=== PATIENT | female | born 1965 | race Caucasian/White ===

== ENCOUNTER → 2017-06-29 | Outpatient (CLI) | payer OTHER ==
--- NOTE | 2017-06-29 10:37 | US ---
EXAMINATION TYPE: US venous doppler duplex LE BI DATE OF EXAM: 06/29/2017 9:42 AM COMPARISON: 04/04/2014 CLINICAL HISTORY: 52-year-old female I83.90 Ruptured varicose vein. SIDE PERFORMED: Bilateral TECHNIQUE: The lower extremity deep venous system is examined utilizing real time linear array sonog opal with graded compression, doppler sonography and color-flow sonography. FINDINGS: TREE DOCTOR NOTES: Large body habitus. VESSELS IMAGED: External Iliac Vein (EIV) Common Femoral Vein Deep Femoral Vein Greater Saphenous Vein * Femoral Vein Popliteal Vein Small Saphenous Vein * Proximal Calf Veins (* superficial vessels) Right Leg: Negative for DVT Left Leg: Negative for DVT IMPRESSION: No evidence for DVT within the bilateral lower extremities imaged from the groin to the upper calves.
== END | disposition home or self-care (01) ==
LOC: RADUSWWP 08:50
PROVIDERS: ATTEND Family Medicine
DX: I83.90 Asymptomatic varicose veins of unspecified lower extremity (principal)
CPT/HCPCS: 93970

== ENCOUNTER → 2017-07-12 | Outpatient (CLI) | payer OTHER ==
--- NOTE | 2017-07-14 10:01 | MM ---
Reason for exam: screening (asymptomatic). Last mammogram was performed 2 years and 4 months ago. History: Patient is nulliparous. Family history of breast cancer in maternal grandmother. Physical Findings: A clinical breast exam by your physician is recommended on an annual basis and results should be correlated with mammographic findings. MG Screening Mammo w CAD Bilateral CC and MLO view(s) were taken. XCCL view(s) were taken of the left breast. Prior study comparison: March 05, 2015, bilateral MG screening mammo w CAD. March 12, 2014, bilateral digital screening mammo w/CAD. April 19, 2012, bilateral digital screening mammo w/CAD. There are scattered fibroglandular densities. Finding: There are typically benign coarse calcifications in the upper quadrant, posterior position of the right breast, on MLO view 14cm from nipple, possible lymph node. Asymmetric breast tissue, right MLO view 14 cm from nipple. New finding since March 05, 2015, March 12, 2014, and April 19, 2012. ASSESSMENT: Incomplete: need additional imaging evaluation, BI-RAD 0 RECOMMENDATION: Ultrasound of the right breast. [facility] will attempt to contact patient to return for ultrasound.
== END | disposition home or self-care (01) ==
LOC: RADMAMWWP 10:11
PROVIDERS: ATTEND Family Medicine
DX: Z12.31 Encounter for screening mammogram for malignant neoplasm of breast (principal)

== ENCOUNTER → 2017-07-19 | Outpatient (CLI) | payer OTHER ==
--- NOTE | 2017-07-20 07:33 | USB ---
Reason for exam: additional evaluation requested from prior study. History: Patient is nulliparous. Family history of breast cancer in maternal grandmother. Physical Findings: Nurse did not find any significant physical abnormalities on exam (nurse sophia). US Breast Workup RT Right breast ultrasound demonstrates a 0.6 x 0.6 x 0.6cm node at axilla tail. These results were verbally communicated with the patient and result sheet given to the patient on 07/19/17. ASSESSMENT: Probably benign, BI-RAD 3 RECOMMENDATION: Ultrasound of the right breast in 6 months.
--- NOTE | 2017-07-22 10:48 | USB ---
Reason for exam: additional evaluation requested from prior study. History: Patient is nulliparous. Family history of breast cancer in maternal grandmother. Physical Findings: Nurse did not find any significant physical abnormalities on exam (nurse sophia). US Breast Workup Limited RT Right breast ultrasound demonstrates a 0.6 x 0.6 x 0.6cm node at axilla tail. These results were verbally communicated with the patient and result sheet given to the patient on 07/19/17. ASSESSMENT: Probably benign, BI-RAD 3 RECOMMENDATION: Ultrasound of the right breast in 6 months.
== END ==
LOC: RADUSWWP 10:13
PROVIDERS: ATTEND Family Medicine
DX: R92.8 Other abnormal and inconclusive findings on diagnostic imaging of breast (principal)

== ENCOUNTER → 2018-01-20 | Outpatient (CLI) | payer BC ==
--- NOTE | 2018-01-20 11:41 | USB ---
Reason for exam: follow-up at short interval from prior study. History: Patient is nulliparous. Family history of breast cancer in maternal grandmother. Physical Findings: Nurse Summary: right breast upper outer quadrant/1 o'clock/axillary tail, 2 x 1cm movable, bilateral ridge inferior breast all soft, movable, subcutaneous area superior chest right 1 o'clock (nurse ts). US Breast RT Right breast ultrasound includes all four quadrants, the retroareolar region and axilla. Finding demonstrates a 0.6 x 0.4 x 0.3cm oval solid lesion at 2 o'clock and a 2.0 x 1.6 x 0.8cm lymph node at the axilla. These results were verbally communicated with the patient and result sheet given to the patient on 01/20/18. ASSESSMENT: Probably benign, BI-RAD 3 RECOMMENDATION: Return to routine screening mammogram schedule for both breasts. Back on schedule for June 2018. Manage patient on a clinical basis.
== END | disposition home or self-care (01) ==
LOC: RADUSWWP 10:19
PROVIDERS: ATTEND Family Medicine
DX: R92.8 Other abnormal and inconclusive findings on diagnostic imaging of breast (principal)

== ENCOUNTER → 2018-08-30 | Outpatient (CLI) | payer BC ==
[2018-08-30 11:31] LABS: Basophils # (A) 0.1 k/uL (0-0.2); Basophils % (A) 1 %; Eosinophils # (A) 0.1 k/uL (0-0.7); Eosinophils % (A) 1 %; HCT 42.3 % (34.0-46.0); HGB 13.6 gm/dL (11.4-16.0); Lymphocytes # (A) 1.9 k/uL (1.0-4.8); Lymphocytes % (A) 34 %; MCHC 32.1 g/dL (31.0-37.0); MCV 96.8 fL (80.0-100.0); Mean Platelet Volume 6.9; Monocytes # (A) 0.3 k/uL (0-1.0); Monocytes % (A) 5 %; Neutrophils # (A) 3.1 k/uL (1.3-7.7); Neutrophils % (A) 57 %; Platelet Count 246 k/uL (150-450); RBC 4.37 m/uL (3.80-5.40); RDW 12.7 % (11.5-15.5); WBC 5.5 k/uL (3.8-10.6)
[2018-08-30 12:06] LABS: T4, Free (Free Thyroxine) 0.91 ng/dL (0.78-2.19)
[2018-08-30 17:49] LABS: Hemoglobin A1C 6.3 % (4.0-6.0)
== END | disposition home or self-care (01) ==
LOC: LABWHC1 09:26
PROVIDERS: ATTEND Otolaryngology Otolaryngology/Facial Plastic Surgery
DX: R42 Dizziness and giddiness (principal)
CPT/HCPCS: 36415; 80061; 83036; 84436; 84439; 84443; 84479; 84481; 85025

== ENCOUNTER → 2018-09-05 | Outpatient (CLI) | payer BC ==
--- NOTE | 2018-09-06 13:15 | MM ---
Reason for exam: screening (asymptomatic). Last mammogram was performed 1 year and 2 months ago. History: Patient is postmenopausal and is nulliparous. Family history of breast cancer in maternal grandmother. Took hormonal contraceptives for 14 years. MG 3D Screening Mammo W/Cad Bilateral CC and MLO view(s) were taken. Prior study comparison: July 12, 2017, bilateral MG screening mammo w CAD. March 05, 2015, bilateral MG screening mammo w CAD. There are scattered fibroglandular densities. Finding #1: There is an enlarging 14 mm round mass in the upper outer quadrant, posterior position of the right breast. Finding #2: There are typically benign round calcifications in both breasts. Increase in size since July 12, 2017 and March 05, 2015. ASSESSMENT: Incomplete: need additional imaging evaluation, BI-RAD 0 RECOMMENDATION: Ultrasound of the right breast. (axilla) [facility] will attempt to contact patient to return for ultrasound.
== END | disposition home or self-care (01) ==
LOC: RADMAMWWP 10:21
PROVIDERS: ATTEND Family Medicine
DX: Z12.31 Encounter for screening mammogram for malignant neoplasm of breast (principal)
CPT/HCPCS: 77063; 77067

== ENCOUNTER → 2018-09-13 | Outpatient (CLI) | payer BC ==
--- NOTE | 2018-09-13 10:52 | USB ---
Reason for exam: additional evaluation requested from abnormal screening. History: Patient is postmenopausal and is nulliparous. Family history of breast cancer in maternal grandmother. Took hormonal contraceptives for 14 years. Physical Findings: Nurse did not find any significant physical abnormalities on exam. US Breast Workup Limited RT Right limited breast ultrasound including focal area of concern, retroareolar and axilla demonstrates a 1.4 x 1.3 x 0.8cm oval, mixed lesion at 12 o'clock. These results were verbally communicated with the patient and result sheet given to the patient on 09/13/18. ASSESSMENT: Benign, BI-RAD 2 RECOMMENDATION: Return to routine screening mammogram schedule for both breasts. Manage patient on a clinical basis.
== END | disposition home or self-care (01) ==
LOC: RADUSWWP 09:32
PROVIDERS: ATTEND Family Medicine
DX: R92.8 Other abnormal and inconclusive findings on diagnostic imaging of breast (principal)

== ENCOUNTER → 2018-11-03 | Outpatient (CLI) | payer BC ==
[2018-11-03 09:51] VITALS: BP 160/105; PULSE 60; RESP 18; TEMP 97.4; BMI 38.9
--- NOTE | 2018-11-03 10:23 | P.GSHP ---
History of Present Illness H&P Date: 11/03/18 Chief Complaint: nodule in the right breast Oxana is a 53-year-old white female who states that she had a mammogram performed on [id number]. The mammogram did show an enlarging 14 mm round mass in the upper-outer quadrant position of the right breast. It was recommended she have an ultrasound of the right breast and axilla and this was performed on 2417. The findings of this were felt to be benign and routine screening the breast was recommended in 1 year. However, following the ultrasound the patient developed an area of increased induration and fullness in the 12 o' clock position of the right breast. She has had a superficial lesion at this site for approximately 3 years. Has never become inflamed in the past. At this time the inflammation has decreased however the area of palpable abnormality remains. The patient is not having any pain at this time. The patient is not having any abnormal nipple discharge at this time. Family History: 1. maternal grandmother: breast cancer 2. paternal uncle: throat cancer Hormonal history: Menarche: 6 years old Pregnancies: None (intentional) menopause: 49 BCP: 20 years hormones: none Past Surgical History: 1. arthroscopic knee 2. bilateral carpal tunnel and trigger release 3. bowel resection/right colon and appendix removed 4. hernia 5. Bilateral blepharoplasty Past Medical History: 1. arthritis 2. right arm trauma/crush injury Social History: smoke: stopped 16 years ago, 2 1/2 PPD, for 20 years alcohol: stopped 18 years ago drugs: Used to use marijuana and opioids but stopped 18 years ago - Constitutional Constitutional: Denies chills, Denies fever - EENT Comment: wears glasses, bilateral blephroplasties vertigo Eyes: bilateral blurred vision (following with opthmology), denies pain Ears: bilateral: decreased hearing, deny: tinnitus Ears, nose, mouth and throat: Denies headache, Denies sore throat - Breasts Breasts: bilateral: as per HPI - Cardiovascular Cardiovascular: Reports high blood pressure, Denies chest pain, Denies shortness of breath - Respiratory Comment: former smoker - Gastrointestinal Comment: has had colonoscopy about 4 years ago Gastrointestinal: Reports constipation, Denies abdominal pain, Denies diarrhea, Denies nausea, Denies vomiting - Genitourinary (Female) Genitourinary: Denies dysuria, Denies hematuria - Menstruation Menstruation: Reports postmenopausal - Musculoskeletal Comment: arthritis, trauma to right arm - Integumentary Integumentary: Denies pruritus, Denies rash - Neurological Neurological: Reports numbness, Reports weakness - Psychiatric Psychiatric: Denies anxiety, Denies depression - Endocrine Comment: boarderline diabetic Endocrine: Denies fatigue, Denies weight change - Hematologic/Lymphatic Comment: none - Allergic/Immunologic Allergic/Immunologic: Reports seasonal allergies Past Medical History Past Medical History: Asthma, Hypertension, Osteoarthritis (OA), Sleep Apnea/ CPAP/BIPAP Additional Past Medical History / Comment(s): diverticulitis in April, now having right sided abd. pain & can feel hard, painful lump on right side, slight change in bowel habits History of Any Multi-Drug Resistant Organisms: None Reported Past Surgical History: Appendectomy, Bowel Resection, Orthopedic Surgery Additional Past Surgical History / Comment(s): Bilateral carpal tunnel release. Finger surg., laparscopic bowel resection & appy. April Past Anesthesia/Blood Transfusion Reactions: Postoperative Nausea & Vomiting ( PONV) Past Psychological History: No Psychological Hx Reported Smoking Status: Former smoker Past Alcohol Use History: Occasional Past Drug Use History: None Reported - Past Family History Father Additional Family Medical History / Comment(s): Father with ULCERATIVE COLITIS WITH ILEOSTOMY Medications and Allergies Home Medications Medication Instructions Recorded Confirmed Type Lisinopril 40 mg PO QAM 04/15/14 11/03/18 History Multivitamins, Thera [Multivitamin 1 tab PO DAILY 04/17/14 11/03/18 History (formulary)] Docusate [Colace] 100 mg PO DAILY 10/28/14 11/03/18 History Preservision 1 tab PO DAILY 10/28/14 11/03/18 History amLODIPine [Norvasc] 5 mg PO QAM 10/28/14 11/03/18 History Ibuprofen [Motrin] 800 mg PO Q8HR PRN 11/18/14 11/03/18 History HYDROcodone/APAP 7.5-325MG [[place] 1 - 2 each PO Q4H PRN #3 300ml.bag 12/03/14 Rx 7.5-325] Beclomethasone Dipropionate [Qvar 40 mcg INHALATION BID 11/03/18 11/03/18 History 40 mcg Redihaler] Allergies Allergy/AdvReac Type Severity Reaction Status Date / Time No Known Allergies Allergy Verified 11/18/14 14:07 Surgical - Exam Vital Signs Temp Pulse Resp BP Pulse Ox 97.4 F L 60 18 160/105 98 11/03/18 09:30 11/03/18 09:30 11/03/18 09:30 11/03/18 09:30 11/03/18 09:30 BMI 38.9 - General well developed, well nourished, no distress, obese - Eyes normal ocular movement - ENT no hearing loss, no congestion - Neck no masses, trachea midline - Respiratory normal respiratory effort, clear to auscultation - Cardiovascular Rhythm: regular Heart Sounds: normal: S1, S2 - Abdomen Abdomen: soft, non tender, no guarding, no rigid, no rebound - Integumentary normal turgar - Neurologic no disoriented, no combative - Musculoskeletal normal gait, normal posture - Psychiatric oriented to time, oriented to person, oriented to place, speech is normal, memory intact Breast exam: Right breast: Multi-positional exam no dominant masses or nodules of concern, the 12 o'clock position high in the breast area is what appears to be a superficial sebaceous cyst which appears to have some mild inflammation surrounding it Right axilla: No adenopathy of concern Left breast: Multi-positional examination of dominant masses or nodules of concern Left axilla: No adenopathy of concern Results Mammogram and ultrasound results reviewed Assessment and Plan Assessment: Impression: 1. Probable sebaceous cyst right breast with some mild inflammation resolving 2. Fibrocystic breast changes 3. Hypertension 4. Asthma 5. Prior smoker 6. Arthritis 7. Borderline diabetic line 8. Status post bowel resection Plan: 1. Surgical resection of sebaceous cyst 2. Routine surveillance of breast 3. Medical management of medical conditions CC: Dr. Mccormick, ([place])
== END | disposition home or self-care (01) ==
LOC: WWCWWP 08:50
PROVIDERS: ATTEND Surgery
DX: Z53.9 Procedure and treatment not carried out, unspecified reason (principal)

== ENCOUNTER 2018-11-14 16:57 | Emergency (ER) | payer BC, OTHER ==
[2018-11-14] MEDS ORDERED: HYDROcodone/APAP 5-325MG 1 EACH TAB PO STA (17:37)
[2018-11-14] MEDS ORDERED: traMADol 50 MG TAB PO STA (17:47)
[2018-11-14 18:22] LABS: Basophils # (A) 0.1 k/uL (0-0.2); Basophils % (A) 1 %; Eosinophils # (A) 0.1 k/uL (0-0.7); Eosinophils % (A) 2 %; HCT 40.9 % (34.0-46.0); HGB 13.3 gm/dL (11.4-16.0); Lymphocytes # (A) 1.8 k/uL (1.0-4.8); Lymphocytes % (A) 28 %; MCH 30.8 pg (25.0-35.0); MCHC 32.6 g/dL (31.0-37.0); MCV 94.5 fL (80.0-100.0); Mean Platelet Volume 7.1; Monocytes # (A) 0.3 k/uL (0-1.0); Monocytes % (A) 5 %; Neutrophils % (A) 61 %; Platelet Count 312 k/uL (150-450); RBC 4.33 m/uL (3.80-5.40); RDW 12.9 % (11.5-15.5); WBC 6.5 k/uL (3.8-10.6)
[2018-11-14 18:31] LABS: ALT 28 U/L (9-52); AST 31 U/L (14-36); Albumin 4.5 g/dL (3.5-5.0); Alkaline Phosphatase 73 U/L (38-126); Anion Gap 10 mmol/L; Blood Urea Nitrogen 18 mg/dL (7-17); Calcium 10.4 mg/dL (8.4-10.2); Carbon Dioxide 21 mmol/L (22-30); Chloride 109 mmol/L (98-107); Glucose 111 mg/dL (74-99); Sodium 140 mmol/L (137-145); Total Bilirubin 0.3 mg/dL (0.2-1.3); Total Protein 7.4 g/dL (6.3-8.2)
[2018-11-14 18:37] LABS: Potassium 4.4 mmol/L (3.5-5.1)
--- NOTE | 2018-11-14 18:42 | US ---
EXAMINATION TYPE: US venous doppler duplex LE DATE OF EXAM: 11/14/2018 6:22 PM COMPARISON: NONE CLINICAL HISTORY: Pain. rt knee pain, no h/o dvt SIDE PERFORMED: bilateral TECHNIQUE: The lower extremity deep venous system is examined utilizing real time linear array sonog opal with graded compression, doppler sonography and color-flow sonography. VESSELS IMAGED: External Iliac Vein (EIV) Common Femoral Vein Deep Femoral Vein Greater Saphenous Vein * Femoral Vein Popliteal Vein Small Saphenous Vein * Proximal Calf Veins (* superficial vessels) Right Leg: Appears negative for DVT Left Leg: Appears negative for DVT IMPRESSION: Negative exam. No evidence of deep venous thrombosis in both legs.
--- NOTE | 2018-11-14 18:50 | XR ---
EXAMINATION TYPE: XR knee 4V RT DATE OF EXAM: 11/14/2018 COMPARISON: NONE HISTORY: Knee pain TECHNIQUE: 4 views FINDINGS: There is mild spurring on the superior patella. I see no fracture nor dislocation. Joint sp aces are fairly normal. IMPRESSION: No acute abnormality of the right knee. No fracture. No joint effusion.
[2018-11-14 19:11] VITALS: RESP 18
--- NOTE | 2018-11-14 19:24 | ED ---
General Adult HPI - General Chief complaint: Extremity Injury, Lower Stated complaint: Knee injury Source: patient, EMS, RN notes reviewed, old records reviewed Mode of arrival: EMS Limitations: no limitations - History of Present Illness Initial comments: 53-year-old female patient past medical history of chronic knee pain presents to ED with acute right knee injury. Patient states that she was walking and her mother's kitchen, slipped on linoleum, not herself with the counter however she states that she felt a pop in her right knee, began experiencing pain. Patient denies any other injury acute injury. Denies fall, head trauma, neck trauma, pain in back, loss of consciousness, any other injury. Patient denies other symptoms including chest pain, shortness breath, abdominal pain, nausea vomiting diarrhea, fever or chills. Systemic: Pt denies fatigue, myalgia, fever/chills, rash. Pt denies weakness, night sweats, weight loss. Neuro: Pt denies headache, visual disturbances, syncope or pre-syncope. HEENT: Pt denies ocular discharge or irritation, otalgia, rhinorrhea, pharyngitis or notable lymphadenopathy. Cardiopulmonary: Pt denies chest pain, SOB, heart palpitations, dyspnea on exertion. Abdominal/GI: Pt denies abdominal pain, n/v/d. : Pt denies dysuria, burning w/ urination, frequency/urgency. Denies new onset urinary or bowel incontinence. MSK: Pt denies myalgia, loss of strength in extremities. Neuro: Pt denies new onset weakness, paresthesias. - Related Data Home Medications Medication Instructions Recorded Confirmed Lisinopril 40 mg PO QAM 04/15/14 11/03/18 Multivitamins, Thera [Multivitamin 1 tab PO DAILY 04/17/14 11/03/18 (formulary)] Docusate [Colace] 100 mg PO DAILY 10/28/14 11/03/18 Preservision 1 tab PO DAILY 10/28/14 11/03/18 amLODIPine [Norvasc] 5 mg PO QAM 10/28/14 11/03/18 Ibuprofen [Motrin] 800 mg PO Q8HR PRN 11/18/14 11/03/18 Beclomethasone Dipropionate [Qvar 40 mcg INHALATION BID 11/03/18 11/03/18 40 mcg Redihaler] Previous Rx's Medication Instructions Recorded HYDROcodone/APAP 7.5-325MG [[place] 1 - 2 each PO Q4H PRN #3 300ml.bag 12/03/14 7.5-325] Ibuprofen [Motrin] 600 mg PO Q6HR PRN #40 day 11/14/18 Allergies Allergy/AdvReac Type Severity Reaction Status Date / Time No Known Allergies Allergy Verified 11/14/18 17:01 Review of Systems ROS Statement: Those systems with pertinent positive or pertinent negative responses have been documented in the HPI. ROS Other: All systems not noted in ROS Statement are negative. Past Medical History Past Medical History: Asthma, Hypertension, Osteoarthritis (OA), Sleep Apnea/ CPAP/BIPAP Additional Past Medical History / Comment(s): diverticulitis in April, now having right sided abd. pain & can feel hard, painful lump on right side, slight change in bowel habits History of Any Multi-Drug Resistant Organisms: None Reported Past Surgical History: Appendectomy, Bowel Resection, Orthopedic Surgery Additional Past Surgical History / Comment(s): Bilateral carpal tunnel release. Finger surg., laparscopic bowel resection & appy. April Past Anesthesia/Blood Transfusion Reactions: Postoperative Nausea & Vomiting ( PONV) Past Psychological History: No Psychological Hx Reported Smoking Status: Former smoker Past Alcohol Use History: Occasional Past Drug Use History: None Reported - Past Family History Father Additional Family Medical History / Comment(s): Father with ULCERATIVE COLITIS WITH ILEOSTOMY General Exam - General Exam Comments Initial Comments: Constitutional: NAD, AOX3, Pt has pleasant affect. HEENT: NC/AT, trachea midline, neck supple, no lymphadenopathy. Posterior pharynx non erythematous, without exudates. External ears appear normal, without discharge. Mucous membranes moist. Eyes PERRLA, EOM intact. There is no scleral icterus. No pallor noted. Cardiopulmonary: RRR, no murmurs, rubs or gallops, no JVD noted. Lungs CTAB in anterior and posterior barrera. No peripheral edema. Abdominal exam: Abdomen soft and non-distended. Abdomen non-tender to palpation in all 4 quadrants. Bowel sounds active in LLQ. No hepatosplenomegaly. No ecchymosis Neuro: CN II-XII grossly intact. No nuchal rigidity. MSK: Pain with active and passive range of motion of right knee. Patient is able to range right knee passively, with pain. Patient has some moderate pain to palpation anterior and posterior knee. No erythema. Neurovascularly intact. Sensation intact. Distal pulses intact, posterior tibialis, dorsalis pedis +2 bilaterally. Patient able to flex knee at hip. Left knee active and passive range of motion intact, no tenderness. No posterior calf tenderness bilaterally, homans sign negative bilaterally. radial pulse +2 bilaterally. Sensation intact in upper and lower extremities. Full active ROM in upper extremities, 5/5 stregnth. Limitations: no limitations Course Vital Signs 11/14/18 11/14/18 11/14/18 16:58 19:10 20:56 Temperature 98.8 F 98.4 F 98.8 F Pulse Rate 86 77 65 Respiratory 20 18 18 Rate Blood Pressure 177/97 154/75 165/100 O2 Sat by Pulse 98 98 98 Oximetry Medical Decision Making - Medical Decision Making 53-year-old female patient past medical history of chronic knee pain presents to ED with acute right knee injury. Patient states that she was walking and her mother's kitchen, slipped on linoleum, not herself with the counter however she states that she felt a pop in her right knee, behind experiencing pain. Patient denies any other injury acute injury. Physical exam displayed Pain with active and passive range of motion of right knee. Patient is able to range right knee passively, with pain. Patient has some moderate pain to palpation anterior and posterior knee. No erythema. Neurovascularly intact. Sensation intact. Distal pulses intact, posterior tibialis, dorsalis pedis. Patient able to flex knee at hip. Laboratory investigation CBC, CMP were not impressive. Plain film of right knee, 4 view did not display any acute process. Venous duplex ultrasound of lower extremities and display any evidence of deep venous thrombosis. Patient diagnosed with knee sprain. Patient placed in the immobilizer. Patient to be nonweightbearing. Patient given follow-up with orthopedics. Patient pain relatively well controlled in ED. Patient not driving home. Patient prescribed ibuprofen for pain. Patient to follow up with PCP and orthopedic as soon as possible. Agent to return to ED if new signs symptoms develop or condition worsens in any way. Case discussed and pt seen by Dr. Hutchison. - Lab Data Result diagrams: 11/14/18 17:58 11/14/18 17:58 Lab Results 12/25/18 12/25/18 12/25/18 Range/Units 17:58 17:58 17:58 WBC 6.5 (3.8-10.6) k/uL RBC 4.33 (3.80-5.40) m/uL Hgb 13.3 (11.4-16.0) gm/dL Hct 40.9 (34.0-46.0) % MCV 94.5 (80.0-100.0) fL MCH 30.8 (25.0-35.0) pg MCHC 32.6 (31.0-37.0) g/dL RDW 12.9 (11.5-15.5) % Plt Count 312 (150-450) k/uL Neutrophils % 61 % Lymphocytes % 28 % Monocytes % 5 % Eosinophils % 2 % Basophils % 1 % Neutrophils # 4.0 (1.3-7.7) k/uL Lymphocytes # 1.8 (1.0-4.8) k/uL Monocytes # 0.3 (0-1.0) k/uL Eosinophils # 0.1 (0-0.7) k/uL Basophils # 0.1 (0-0.2) k/uL Sodium 140 (137-145) mmol/L Potassium 4.4 (3.5-5.1) mmol/L Chloride 109 H (98-107) mmol/L Carbon Dioxide 21 L (22-30) mmol/L Anion Gap 10 mmol/L BUN 18 H (7-17) mg/dL Creatinine 0.74 (0.52-1.04) mg/dL Est GFR (CKD-EPI)AfAm >90 (>60 ml/min/1.73 sqM) Est GFR (CKD-EPI)NonAf >90 (>60 ml/min/1.73 sqM) Glucose 111 H (74-99) mg/dL Plasma Lactic Acid Theodore 1.9 (0.7-2.0) mmol/L Calcium 10.4 H (8.4-10.2) mg/dL Total Bilirubin 0.3 (0.2-1.3) mg/dL AST 31 (14-36) U/L ALT 28 (9-52) U/L Alkaline Phosphatase 73 (38-126) U/L Total Protein 7.4 (6.3-8.2) g/dL Albumin 4.5 (3.5-5.0) g/dL Disposition Clinical Impression: Knee pain, right, Sprain, knee Disposition: HOME SELF-CARE Condition: Good Instructions: Knee Sprain (ED) Additional Instructions: Patient to adhere to previously discussed treatment plan and will take medication(s) as directed. Patient to follow up with PCP in 1-2 days. Patient to return to ED if symptoms do not improve. Prescriptions: Ibuprofen [Motrin] 600 mg PO Q6HR PRN #40 day PRN Reason: Pain Is patient prescribed a controlled substance at d/c from ED?: No Referrals: Zeke Mccormick DO [Primary Care Provider] - 1-2 days Nakul Reardon PAC [PHYSICIAN MANAGER [facility]] - 1-2 days Time of Disposition: 19:35
[2018-11-14] MEDS ORDERED: KETOROLAC 30 MG/ML 1 ML VIAL IVP STA (19:55)
[2018-11-14] MEDS ORDERED: MORPHINE SULFATE 4 MG/ML SYRINGE IVP STA (20:07)
[2018-11-14 20:57] VITALS: BP 165/100; PULSE 65; TEMP 98.8
== END 2018-11-14 20:56 | disposition home or self-care (01) ==
LOC: EC 16:57
DX: S83.91XA Sprain of unspecified site of right knee, initial encounter (principal); J45.909 Unspecified asthma, uncomplicated; I10 Essential (primary) hypertension; G47.30 Sleep apnea, unspecified; Z79.51 Long term (current) use of inhaled steroids; Z79.899 Other long term (current) drug therapy; Z87.891 Personal history of nicotine dependence; X50.1XXA Overexertion from prolonged static or awkward postures, initial encounter; Y93.01 Activity, walking, marching and hiking
CPT/HCPCS: 36415; 80053; 83605; 85025; 73564; 93970; 99284; 96374; L1830 ×2; J2270

== ENCOUNTER → 2018-12-07 | Outpatient (CLI) | payer BC ==
[2018-12-07 08:51] VITALS: BP 141/86; PULSE 79; RESP 18; TEMP 98; BMI 39.4
--- NOTE | 2018-12-07 10:40 | P.PN ---
Subjective cyst right april Daigle is a 53-year-old white female who was seen with a area of nodularity in the right breast/chest wall. The area was felt to be a somewhat superficial lesion which has been present for approximately 3 years. It has recently become inflamed and has some mild drainage from the area as well at this time. The inflammation started several days ago. The patient did have a bilateral mammogram performed in August 2018 as well as an ultrasound of the right breast. These findings were felt to be benign and routine screening of the breast was recommended in 1 year. The patient was seen and evaluated at that time and a breast examination she was noted to have a 12 o'clock position in the right breast area was believed to be superficial sebaceous cyst with some inflammation surrounding it, at this time she has increased erythema and the inflammation with some drainage from the area. Family history: 1. Maternal grandmother: Breast cancer 2. Paternal uncle: Throat cancer Past surgical history: 1. Arthroscopic knee surgery 2. Bilateral carpal tunnel and trigger release 3. Bowel resection/right colon and appendix removed 4. Hernia surgery 5. Bilateral blepharoplasty Past medical history: 1. Arthritis 2. Right arm trauma/crush injury Social history: Smoked: Stopped 16 years ago used to smoke 2-1/2 packs per day for 20 years Alcohol: Stopped 18 years ago Drugs: Used marijuana in the past but stopped 18 years ago Objective - Vital Signs Vital signs: Vital Signs Temp 98.0 F 12/07/18 08:40 Pulse 79 12/07/18 08:40 Resp 18 12/07/18 08:40 BP 141/86 12/07/18 08:40 Pulse Ox 99 12/07/18 08:40 Intake & Output 12/06/18 12/07/18 12/07/18 18:59 06:59 18:59 Weight 107.501 kg - Constitutional General appearance: Present: obese - EENT Eyes: Present: EOMI ENT: Present: hearing grossly normal - Neck Neck: Present: normal ROM - Respiratory Respiratory: bilateral: CTA - Cardiovascular Rhythm: regular Heart sounds: normal: S1, S2 - Integumentary Integumentary Comment(s): Right chest wall: Probable an inflamed sebaceous cyst erythema surrounding an area approximately 2 x 3 cm in size, drainage noted from the area of the cystic lesion Assessment and Plan Assessment: Impression: 1. Inflamed sebaceous cyst with some drainage 2. Arthritis 3. Fibrocystic bilateral breast disease Plan: 1. Cultures to be obtained of sebaceous cyst area 2. Medical management of medical conditions 3. Incision and drainage in the operating room of sebaceous cyst region versus excision of the cyst Cultures are obtained both aerobic and anaerobic of the area in the cyst. These are sent to microbiology. Patient is started on Keflex. Cc: Dr. Zeke Mccormick in [place] Objective - Vital Signs Vital signs: Vital Signs Temp 98.0 F 12/07/18 08:40 Pulse 79 12/07/18 08:40 Resp 18 12/07/18 08:40 BP 141/86 12/07/18 08:40 Pulse Ox 99 12/07/18 08:40 Intake & Output 12/06/18 12/07/18 12/07/18 18:59 06:59 18:59 Weight 107.501 kg - Constitutional General appearance: Present: obese - EENT Eyes: Present: EOMI ENT: Present: hearing grossly normal - Neck Neck: Present: normal ROM - Respiratory Respiratory: bilateral: CTA - Cardiovascular Rhythm: regular Heart sounds: normal: S1, S2 - Gastrointestinal General gastrointestinal: Present: soft - Integumentary Integumentary Comment(s): Approximately 2 x 3 cm area of inflammation surrounding what appears to be an infected sebaceous cyst area which is protuberant and with some drainage from the site on the right breast/chest wall in the 12 o'clock position Integumentary: Present: normal turgor - Musculoskeletal Musculoskeletal Comment(s): Using crutches for ambulation - Psychiatric Psychiatric: Present: A&O x's 3, appropriate affect, intact judgment & insight Assessment and Plan Assessment: Impression: 1. Infected area of sebaceous cyst with inflammation and drainage of right chest wall approximately 12 o'clock position 2. History of arthritis Plan: 1. Cultures of inflamed area right chest wall 2. Incision and drainage in the office of the area of concern 3. Medical management of arthritis Cc: Dr. Mccormick [place]
--- NOTE | 2018-12-07 10:44 | P.PCN ---
Date of Procedure: 12/07/18 Preoperative Diagnosis: Infected sebaceous cyst area right breast/chest wall Postoperative Diagnosis: same Procedure(s) Performed: Incision and drainage of sebaceous cyst area with cultures Anesthesia: local Surgeon: Corie Kumar Pathology: none sent Condition: stable Disposition: same day Indications for Procedure: Inflamed swollen area with erythema and some seropurulent drainage right 12 o' clock position breast/chest wall Description of Procedure: The area of concern in the right breast/chest wall at 12:00 was prepped using Betadine. 1% lidocaine was used to anesthetize the area of concern. Prior to prepping the area aerobic and anaerobic cultures were obtained of the area of discharge from the swollen region. A #15 blade was used to make a small incision over the area of fluctuance. What appeared to be sebum as well as seropurulent fluid was extruded. The area was irrigated. The area was packed using iodoform gauze. The patient tolerated the procedure. The patient is started on oral antibiotics Keflex. Cc: Dr. Mccormick ([place])
== END ==
LOC: WWCWWP 08:30
PROVIDERS: ATTEND Surgery
DX: Z53.9 Procedure and treatment not carried out, unspecified reason (principal)

== ENCOUNTER → 2018-12-14 | Outpatient (CLI) | payer BC ==
[2018-12-14 09:49] VITALS: BP 147/91; PULSE 64; RESP 18; TEMP 97.7; BMI 39.4
--- NOTE | 2018-12-14 10:08 | P.PN ---
Subjective Progress Note Date: 12/14/18 Oxana is a 53-year-old white female status post resection of sebaceous cyst right breast/chest wall on 2218. She has been changing the packing at home but comes in today for packing to be changed and an wound to be evaluated. She states that that it is uncomfortable when she changes the packing however the discomfort is decreasing. She is not complaining of any fever or chills. Cultures were positive for staph aureus. Objective - Vital Signs Vital signs: Vital Signs Temp 97.7 F 12/14/18 09:45 Pulse 64 12/14/18 09:45 Resp 18 12/14/18 09:45 BP 147/91 12/14/18 09:45 Pulse Ox 96 12/14/18 09:45 Intake & Output 12/13/18 12/14/18 12/14/18 18:59 06:59 18:59 Weight 107.501 kg - Constitutional General appearance: Present: obese - EENT Eyes: Present: EOMI ENT: Present: hearing grossly normal - Integumentary Integumentary Comment(s): Incision right chest wall: Mild erythema around incision Medial aspect of incision and open packing is removed and changed No evidence of any active infection Assessment and Plan Assessment: Impression: 1. Resection of sebaceous cyst right chest wall/breast area 2. Mild erythema at area of resection Plan: 1. Keflex prescribed 2. Continue wound care 3. Follow-up next week
== END ==
LOC: WWCWWP 08:51
PROVIDERS: ATTEND Surgery
DX: Z53.9 Procedure and treatment not carried out, unspecified reason (principal)

== ENCOUNTER → 2018-12-19 | Outpatient (CLI) | payer BC ==
--- NOTE | 2018-12-19 08:57 | P.PN ---
Progress Note - Text Progress Note Date: 12/19/18 Oxana is a 53-year-old white female who is status post excision of sebaceous cyst from right breast/chest wall 120 219. The patient was concerned that she had some discomfort and inflammation near the area which got worse on Tuesday. The patient has been taking showers and directing the wire into the area of the wound. The patient is here for evaluation of the wound. The patient has had no fever or chills. She does not state that the area of surrounding erythema has increased. The patient also complains of some vaginal white cheesy-like discharge. In addition she has noted in her groins some irritation and the areas itching. The patient has been on Keflex. Physical exam: Examination of the surgical site reveals some inflammation near the site but no evidence of infection packing is changed and there is no evidence of infection although the packing although the packing is moist. The packing was changed. Examination of the groins revealed what appears to be a fungal infection in the groin creases Impression: 1. Inflammation at site of surgical wound but no evidence of infection 2. Probable yeast infection related to the antibiotic Plan: 1. Case was discussed with Dr. Schumacher and patient was started on Diflucan 150 mg 1 by mouth daily every other day for 2 doses 2. Wound packing was changed and cultures were obtained 3. Stop the Keflex 4. Follow-up here on
[2018-12-19 09:24] VITALS: BP 150/82; PULSE 79; RESP 14; TEMP 98.4; BMI 39.4
== END | disposition home or self-care (01) ==
LOC: WWCWWP 08:20
PROVIDERS: ATTEND Surgery
DX: N64.9 Disorder of breast, unspecified (principal)
CPT/HCPCS: 87070; 87205

== ENCOUNTER → 2018-12-21 | Outpatient (CLI) | payer BC ==
[2018-12-21 09:22] VITALS: BP 133/79; PULSE 78; RESP 18; TEMP 96.6; BMI 39.4
--- NOTE | 2018-12-21 09:52 | P.PN ---
Progress Note - Text Progress Note Date: 12/21/18 Oxana is a 53-year-old white female status post excision of a cystic lesion from her right chest wall. The area has been packed and the area of the cavity has decreased in size. Her surgery was on . She states it is press tender when she packs it. She denies any fever or chills. She has been packing it with iodoform gauze. Her pathology revealed benign fibroadipose tissue with inflamed granulation tissue lined cavity, adjacent fibrosis, fat necrosis and foreign body reaction consistent with ruptured cyst versus abscess. Seen on 12-19-18 at that time she was complaining of discomfort at this site as well as vaginal discharge which was cheesy in nature. It was felt that she most likely had a fungal infection related to antibiotic use and she was started on Diflucan. The vaginal discharge has decreased as has itching in her groin folds. On cultures were obtained. PMNs were seen but no organisms were noted. She has not been restarted on antibiotics. Physical exam: Examination of the site of excision of the cyst was performed The packing was changed The size of the cavity appears to have decreased from her prior visit There is no evidence of any infection There is some erythema which is believed to be related to inflammation around the area of the excised lesion The area has decreased tenderness Impression: 1. Patient postop excision of cystic lesion right chest wall 2. Decreased size of cavity at the excised lesion 3. Decreased erythema Plan: 1. Await final cultures 2. Continue present therapy, at this time we will recommend using plain gauze rather than iodoform gauze CC: Dr. Mccormick
== END | disposition home or self-care (01) ==
LOC: WWCWWP 09:06
PROVIDERS: ATTEND Surgery
DX: Z53.9 Procedure and treatment not carried out, unspecified reason (principal)

== ENCOUNTER → 2018-12-29 | Outpatient (CLI) | payer BC ==
[2018-12-29 13:54] VITALS: BP 138/81; PULSE 69; RESP 18; TEMP 97.1; BMI 39.4
--- NOTE | 2018-12-29 14:08 | P.PN ---
Progress Note - Text Progress Note Date: 12/29/18 Oxana is status post excision of a cyst from her right chest wall. The patient is doing well at this time. She has been packing the wound and very little packing is now able to be placed inside of the wound. She has no complaints at this time. The discomfort she had before his largely resolved. Physical exam: Incision is clean and dry Small amount of packing is present Sutures to be removed Impression: Patient postop excision of cystic lesion right chest wall Decreased size of the cavity Decreased erythema Plan: Sutures to be removed Continue packing Follow-up 1 month CC: Dr. Zeke Mccormick [place]
== END ==
LOC: WWCWWP 13:35
PROVIDERS: ATTEND Surgery
DX: Z53.9 Procedure and treatment not carried out, unspecified reason (principal)

== ENCOUNTER → 2019-01-18 | Outpatient (CLI) | payer BC ==
[2019-01-18 14:09] VITALS: BP 147/88; PULSE 90; RESP 16; TEMP 97.9; BMI 39.4
--- NOTE | 2019-01-18 14:21 | P.PN ---
Progress Note - Text Progress Note Date: 01/18/19 Keturah is a 54-year-old white female who is status post excision of sebaceous cyst from right breast/chest wall on 2218. The patient had some concern that there was some inflammation near the area and subsequently was seen in the office for this. Cultures were obtained and cultures from 12/19/2018 did not reveal any organisms but PMNs. The patient states that the area is healed at this time. The patient has no fevers at this time. The patient has no drainage from the area at this time. The patient is waiting for a right knee arthroscopic procedure. She needs a confirmation that there is no evidence of infection at the site prior to the procedure. The patient did develop a yeast infection in her groin after she was taking antibiotics. This is resolved at the present time. Physical examination: Lungs: Clear Heart: Regular rate and rhythm The site of the prior sebaceous cyst is mild erythema but it is clean with no drainage at this time there was scar tissue associated with the prior procedure Impression: 1. Patient with scar tissue at previous sebaceous cyst excision site on the right chest wall 2. Most recent cultures which were 120 919 revealed many PMNs but no organisms, no growth after 48 hours 3. Arthritic changes to her knee 4. HTN 5. Borderline diabetic Plan: 1. We'll request infectious disease clearance prior to surgery on her knee 2. Continue medical management of medical conditions 3. Follow-up here in 6 months time Cc: Dr. Zeke Mccormick [place]
== END | disposition home or self-care (01) ==
LOC: WWCWWP 13:33
PROVIDERS: ATTEND Surgery
DX: Z53.9 Procedure and treatment not carried out, unspecified reason (principal)

== ENCOUNTER → 2019-06-28 | Outpatient (CLI) | payer BC ==
--- NOTE | 2019-06-28 12:54 | CONS ---
CONSULTATION DATE OF SERVICE: 06/28/2019 A 54-year-old lady who has been re-evaluated in the Sleep Center for obstructive sleep apnea-hypopnea syndrome. Patient has history of obstructive sleep apnea for about 8 years. She is using her CPAP machine, but still has some discomfort with the mask and some awakenings sleep. Her sleep schedule from 1 to 2 a.m. until 9 a.m. on weekdays and weekends from around 11:30 p.m. until 9 to:10 a.m. Usually has no problems with falling asleep, although has TV set in bedroom. She sleeps on the back position. She feels sleepy during the day. [place] Sleepiness Scale significantly increased to 18. Usually she does not take naps. She takes them rarely but feels refreshed after them. No history of hypnagogic hallucinations, sleep paralysis or cataplexy. I checked CPAP unit, range of the pressure 5-11. Usage is every night 30/30 nights with average usage is 7.3 hours. Machine does not have information about apnea-hypopnea index. PAST MEDICAL HISTORY: 1. Hypertension. 2. Back problems. 3. Asthma. 4. Left hip problems. PAST SURGICAL HISTORY: Bilateral surgery for carpal tunnel syndrome, surgery on both eyelids, right knee surgery for meniscus problems in 2019. MEDICATIONS: Lisinopril, amlodipine, QVAR. SOCIAL HISTORY: Positive for smoking in the past; quit in 1999. Alcohol consumption,. totally quit in 1999. FAMILY HISTORY: Hypertension, heart problems, arthritis, diabetes. REVIEW OF SYSTEMS: Awakenings from sleep sleepiness during the day. PHYSICAL EXAM: lady without distress BP 146/72, HR 58, RR 16, height 5 foot 4 inches, weight 229 pounds. Body mass index 39.1, temperature 98.0, oxygen saturation on room air 98%. Oropharynx extremely low position of soft palate. Mallampati 4. Wide neck 16-1/4 inch in circumference. ABDOMEN: Obese. EXTREMITIES: 1+ bilateral ankle edema. IMPRESSION: 1. Obstructive sleep apnea-hypopnea syndrome. Patient is on treatment without AutoPAP. Still has awakenings from sleep and sleepiness during the day. [place] Sleepiness Scale increased to 13. 2. Obesity, body mass index 39.1. 3. Hypertension. 4. Back problems. 5. Asthma. 6. Status post bilateral surgery for carpal tunnel syndrome. 7. Status post eyelid surgery bilaterally. 8. Status post right knee surgery for meniscus problem in 2019. 9. History of left hip problems. PLAN: 1. Repeat CPAP titration for re-evaluation of effective CPAP pressure and refitting patient with a mask because treatment without AutoPAP not fully effective. 2. Losing weight. 3. Sleep hygiene with regular time in bed for at least 8 hours. 4. No driving if feeling sleepiness. Thank you very much for allowing me to participate in the management of hour patient. Sincerely, Tobias Moreira MD, PhD, FAASM Diplomat of [place] [employer] [place] [employer] Substitute Nurse of [facility] [place] MMODL / IJN: [id number] /
== END ==
LOC: SLEEP 11:15
PROVIDERS: ATTEND Internal Medicine
DX: G47.33 Obstructive sleep apnea (adult) (pediatric) (principal); E66.9 Obesity, unspecified; I10 Essential (primary) hypertension; R29.898 Other symptoms and signs involving the musculoskeletal system; J45.909 Unspecified asthma, uncomplicated; Z98.890 Other specified postprocedural states; Z99.89 Dependence on other enabling machines and devices; Z68.39 Body mass index [BMI] 39.0-39.9, adult; Z87.891 Personal history of nicotine dependence; Z79.899 Other long term (current) drug therapy
CPT/HCPCS: 99211

== ENCOUNTER → 2019-08-17 | Outpatient (CLI) | payer BC ==
[2019-08-17 13:13] VITALS: BP 125/81; PULSE 76; RESP 20; TEMP 98; BMI 39.1
--- NOTE | 2019-08-17 13:13 | P.PN ---
Subjective Progress Note Date: 08/17/19 Principal diagnosis: follow up on right breast Oxana is a 54-year-old white female status post [place] [address]. After the procedure this area was followed closely as she developed some inflammation near the site. At this time the christiane ent has no complaints related to this. She states it is healed well. The patient is not complaining of any pain in her breasts. She has no nodularity or lesions of concern in her breast. No nipple discharge or skin changes of concern. Family History: 1. maternal grandmother: breast cancer 2. paternal uncle: throat cancer Hormonal history: Menarche: 6 years old Pregnancies: None (intentional) menopause: 49 BCP: 20 years hormones: none Past Surgical History: 1. arthroscopic knee 2. bilateral carpal tunnel and trigger release 3. bowel resection/right colon and appendix removed 4. hernia 5. Bilateral blepharoplasty Past Medical History: 1. arthritis 2. right arm trauma/crush injury Social History: smoke: stopped 16 years ago, 2 1/2 PPD, for 20 years alcohol: stopped 18 years ago drugs: Used to use marijuana and opioids but stopped 18 years ago - Constitutional Constitutional: Denies chills, Denies fever - EENT Comment: wears glasses, bilateral blephroplasties vertigo Eyes: bilateral blurred vision (following with opthmology), denies pain Ears: bilateral: decreased hearing, deny: tinnitus Ears, nose, mouth and throat: Denies headache, Denies sore throat - Breasts Breasts: bilateral: as per HPI - Cardiovascular Cardiovascular: Reports high blood pressure, Denies chest pain, Denies shortness of breath - Respiratory Comment: former smoker - Gastrointestinal Comment: has had colonoscopy about 4 years ago Gastrointestinal: Reports constipation, Denies abdominal pain, Denies diarrhea, Denies nausea, Denies vomiting - Genitourinary (Female) Genitourinary: Denies dysuria, Denies hematuria - Menstruation Menstruation: Reports postmenopausal - Musculoskeletal Comment: arthritis, trauma to right arm - Integumentary Integumentary: Denies pruritus, Denies rash - Neurological Neurological: Reports numbness, Reports weakness - Psychiatric Psychiatric: Denies anxiety, Denies depression - Endocrine Comment: boarderline diabetic Endocrine: Denies fatigue, Denies weight change - Hematologic/Lymphatic Comment: none Objective - Vital Signs Vital signs: Intake & Output 09/26/19 09/27/19 09/27/19 18:59 06:59 18:59 Weight 103.419 kg - Exam BMI 39.1 - Constitutional General appearance: Present: obese - EENT Eyes: Present: EOMI ENT: Present: hearing grossly normal - Neck Neck: Present: normal ROM - Respiratory Respiratory: bilateral: CTA - Cardiovascular Rhythm: regular Heart sounds: normal: S1, S2 - Integumentary Integumentary: Present: normal turgor - Musculoskeletal Musculoskeletal Comment(s): ambulates with difficulty - Psychiatric Psychiatric: Present: A&O x's 3, appropriate affect, intact judgment & insight - Additional findings Additional findings: Breast examination: Right breast: Well-healed scar from prior surgery no dominant masses or nodules of concern no evidence of any infection, fibrocystic changes Right axilla: No adenopathy of concern Left breast: Fibrocystic changes, no dominant masses or nodules of concern Left axilla: No adenopathy of concern Assessment and Plan Assessment: Impression: 1. Fibrocystic breast changes 2. Family history of breast cancer 3. Family history of cancer 4. Arthritis 5. Hypertension 6. Asthma 7. Borderline diabetic 8. Status post bowel resection 9. No evidence of any breast cancer on clinical examination Plan: 1. Bilateral mammogram at that area of August 2019 2. Follow-up the results of mammogram CC: Dr. Mccormick
== END ==
LOC: WWCWWP 12:58
PROVIDERS: ATTEND Surgery
DX: Z53.9 Procedure and treatment not carried out, unspecified reason (principal)

== ENCOUNTER → 2019-09-19 | Outpatient (CLI) | payer BC ==
--- NOTE | 2019-09-19 11:40 | MM ---
Reason for exam: additional evaluation requested from prior study. Last mammogram was performed 1 year ago. History: Patient is postmenopausal and is nulliparous. Family history of breast cancer in maternal grandmother. Took hormonal contraceptives for 14 years. Physical Findings: Nurse Summary: 0.5cm nodule in the left breast at 7-8 o'clock (nurse dennis). MG 3D Diag Mammo W/Cad TI Bilateral CC and MLO view(s) were taken. Prior study comparison: September 05, 2018, bilateral MG 3d screening mammo w/cad. July 12, 2017, bilateral MG screening mammo w CAD. There are scattered fibroglandular densities. Previous right sebaceous cyst has been surgically removed. These results were verbally communicated with the patient and result sheet given to the patient on 09/19/19. ASSESSMENT: Incomplete: need additional imaging evaluation, BI-RAD 0 RECOMMENDATION: Ultrasound of the left breast. (palpable)
--- NOTE | 2019-09-19 11:42 | USB ---
Reason for exam: additional evaluation requested from abnormal screening. History: Patient is postmenopausal and is nulliparous. Family history of breast cancer in maternal grandmother. Took hormonal contraceptives for 14 years. US Breast Limited LT Left limited breast ultrasound including focal area of concern, retroareolar and axilla demonstrates no cystic or solid lesion seen. No suspicious sonographic finding. These results were verbally communicated with the patient and result sheet given to the patient on 09/19/19. ASSESSMENT: Negative, BI-RAD 1 RECOMMENDATION: Routine screening mammogram of both breasts in 1 year.
== END | disposition home or self-care (01) ==
LOC: RADMAMWWP 10:03
PROVIDERS: ATTEND Surgery
DX: R92.8 Other abnormal and inconclusive findings on diagnostic imaging of breast (principal)
CPT/HCPCS: 77062; 77066

== ENCOUNTER → 2019-12-20 | Outpatient (CLI) | payer BC ==
--- NOTE | 2019-12-20 11:41 | SFUN ---
SLEEP CENTER FOLLOW UP NOTE DATE OF SERVICE: 12/20/2019 This 54-year-old lady has been followed in sleep center for treatment of obstructive sleep apnea-hypopnea syndrome. Last CPAP titration done on 08/15/2019. Patient is on treatment with CPAP. She is able to use CPAP equipment every night for the whole night. No snoring with the machine. [place] Sleepiness Scale today is 5. She started to use nasal pillows mask, but did not feel comfortable with that and then mask was changed to [place] nasal mask. With this mask, the patient feels more comfortable. I checked her CPAP unit. CPAP pressure is 9 cm of water. Usage is every night 30 out of 30 nights for more than 4 hours with average usage is 7.8 hours per night. Leak only 2 L/minute. Apnea-hypopnea index 3.3, which is totally perfect. MEDICATIONS: Lisinopril, amlodipine, Qvar. PHYSICAL EXAMINATION: During physical exam, patient in no distress. VITAL SIGNS: BP 147/75, HR 70, RR 16, weight 230, temp 98.4, oxygen saturation on room 99%. HEENT: PERRLA, EOMI. Oropharynx extremely low soft palate, Mallampati 4. NECK: Supple, no JVD. Thyroid is not palpable. LUNGS: Clear to percussion and to auscultation. Good air exchange. No wheezing or rhonchi. HEART: S1, S2 regular. No murmurs, gallops, or rubs. ABDOMEN: Obese. EXTREMITIES: No clubbing or cyanosis. INSPECTOR SCREEN PRINTING: Awake, alert, and oriented X3. Cranial nerves 2 to 7 intact. There is no fasciculation or atrophy. noted. No focal deficits observed. IMPRESSION: 1. Obstructive sleep apnea-hypopnea syndrome. Patient demonstrated 100% compliance with treatment benefitting from treatment. 2. Obesity. 3. Hypertension. 4. Asthma. 5. Status post bilateral surgery for carpal tunnel syndrome. 6. History of left hip problems. 7. Back problems. 8. Status post eyelid surgery bilaterally. 9. Status post right knee surgery for meniscus problems. PLAN: 1. Patient will continue to use CPAP equipment every night for the whole night with the same level of pressure. 2. Will maintain all necessary CPAP prescriptions including nasal mask, heated tube, filters. 3. Losing weight. 4. Sleep hygiene with regular time in bed for 7-1/2 hours. 5. Precautions related to driving. No driving if feeling sleepiness. 6. Follow-up visit in 1 year or earlier if patient has any problems. Thank you very much for allowing me to participate in management of your patient. Sincerely. Tobias Moreira MD, PhD, FAASM Diplomat of [place] [employer] [place] [employer] Associate of [facility] [place] MMODL / IJN: [id number] /
== END | disposition home or self-care (01) ==
LOC: SLEEP 09:57
PROVIDERS: ATTEND Internal Medicine
DX: G47.33 Obstructive sleep apnea (adult) (pediatric) (principal); E66.9 Obesity, unspecified; I10 Essential (primary) hypertension; J45.909 Unspecified asthma, uncomplicated; Z98.890 Other specified postprocedural states; Z87.39 Personal history of other diseases of the musculoskeletal system and connective tissue; R93.89 Abnormal findings on diagnostic imaging of other specified body structures; Z99.89 Dependence on other enabling machines and devices; Z79.899 Other long term (current) drug therapy

== ENCOUNTER → 2020-06-06 | Outpatient (CLI) | payer BC ==
[2020-06-06 13:35] LABS: HCT 41.5 % (34.0-46.0); MCH 32.3 pg (25.0-35.0); MCHC 33.7 g/dL (31.0-37.0); MCV 95.7 fL (80.0-100.0); Mean Platelet Volume 7.9; Platelet Count 230 k/uL (150-450); RBC 4.34 m/uL (3.80-5.40); RDW 12.6 % (11.5-15.5); WBC 5.4 k/uL (3.8-10.6)
[2020-06-06 13:45] LABS: ALT 23 U/L (4-34); AST 26 U/L (14-36); African American GFR (CKD) >90 (>60 ml/min/1.73 sqM); Albumin 4.4 g/dL (3.5-5.0); Alkaline Phosphatase 76 U/L (38-126); Anion Gap 7 mmol/L; Blood Urea Nitrogen 10 mg/dL (7-17); Calcium 9.9 mg/dL (8.4-10.2); Carbon Dioxide 27 mmol/L (22-30); Chloride 104 mmol/L (98-107); Glucose 113 mg/dL (74-99); Non-African American GFR(CKD) >90 (>60 ml/min/1.73 sqM); Potassium 4.3 mmol/L (3.5-5.1); Sodium 138 mmol/L (137-145); Total Bilirubin 0.6 mg/dL (0.2-1.3); Total Protein 6.7 g/dL (6.3-8.2)
[2020-06-06 13:46] LABS: INR 0.9 (<1.2); Partial Thromboplastin Time 26.7 sec (22.0-30.0); Prothrombin Time 9.9 sec (9.0-12.0)
[2020-06-06 14:34] LABS: Appearance,Urine Clear (Clear); Bilirubin,Urine Negative (Negative); Blood,Urine Negative (Negative); Color,Urine Light Yellow; Glucose,Urine (UA) Negative (Negative); Ketones,Urine Negative (Negative); Leukocyte Esterase,Urine Negative (Negative); Nitrite,Urine Negative (Negative); Protein,Urine Negative (Negative); Specific Gravity,Urine 1.007 (1.001-1.035); Urobilinogen,Urine <2.0 mg/dL (<2.0)
== END | disposition home or self-care (01) ==
LOC: LABPAT 11:32
PROVIDERS: ATTEND Orthopaedic Surgery
DX: Z01.818 Encounter for other preprocedural examination (principal); Z01.812 Encounter for preprocedural laboratory examination
CPT/HCPCS: 80053; 81003; 85027; 85610; 85730; 87070; 93005

== ENCOUNTER → 2020-10-01 | Outpatient (CLI) | payer BC, OTHER | END | disposition home or self-care (01) | LOC: LABWHC1 11:28 | PROVIDERS: ATTEND Family Medicine | DX: Z20.828 Contact with and (suspected) exposure to other viral communicable diseases (principal) | CPT/HCPCS: U0003; C9803 ==

== ENCOUNTER → 2021-01-01 | Outpatient (CLI) | payer OTHER ==
--- NOTE | 2021-01-02 11:45 | MM ---
Reason for exam: screening (asymptomatic). Last mammogram was performed 1 year and 3 months ago. History: Patient is postmenopausal and is nulliparous. Family history of breast cancer in maternal grandmother. Took hormonal contraceptives for 14 years. Physical Findings: A clinical breast exam by your physician is recommended on an annual basis and results should be correlated with mammographic findings. MG 3D Screening Mammo W/Cad Bilateral CC and MLO view(s) were taken. Prior study comparison: September 19, 2019, bilateral MG 3d diag mammo w/cad TI. September 05, 2018, bilateral MG 3d screening mammo w/cad. There are scattered fibroglandular densities. There is no discrete abnormality. No significant changes when compared with prior studies. ASSESSMENT: Negative, BI-RAD 1 RECOMMENDATION: Routine screening mammogram of both breasts in 1 year.
== END | disposition home or self-care (01) ==
LOC: RADMAMWWP 10:55
PROVIDERS: ATTEND Family Medicine
DX: Z12.31 Encounter for screening mammogram for malignant neoplasm of breast (principal)
CPT/HCPCS: 77063; 77067

== ENCOUNTER → 2022-01-08 | Outpatient (CLI) | payer OTHER ==
--- NOTE | 2022-01-12 08:46 | MM ---
Reason for exam: screening (asymptomatic). Last mammogram was performed 1 year ago. History: Patient is postmenopausal and is nulliparous. Family history of breast cancer in maternal grandmother. Took hormonal contraceptives for 14 years. Physical Findings: A clinical breast exam by your physician is recommended on an annual basis and results should be correlated with mammographic findings. MG 3D Screening Mammo W/Cad Bilateral CC and MLO view(s) were taken. Prior study comparison: January 01, 2021, bilateral MG 3d screening mammo w/cad. September 19, 2019, bilateral MG 3d diag mammo w/cad TI. No significant changes when compared with prior studies. ASSESSMENT: Benign, BI-RAD 2 RECOMMENDATION: Routine screening mammogram of both breasts in 1 year.
== END | disposition home or self-care (01) ==
LOC: RADMAMWWP 11:15
PROVIDERS: ATTEND Family Medicine
DX: Z12.31 Encounter for screening mammogram for malignant neoplasm of breast (principal)
CPT/HCPCS: 77063; 77067

== ENCOUNTER → 2025-03-01 | Outpatient (CLI) | payer BC ==
--- NOTE | 2025-03-01 16:18 | MM ---
Reason for Exam: Screening (asymptomatic). Last mammogram was performed 1 year(s) and 1 month(s) ago. Patient History: Menarche at age 7. Patient has no children. Postmenopausal. Patient used Hormonal Contraceptives for 14 years. Maternal grandmother had breast cancer, age 80. Risk Values: Gracia 5 year model risk: 1.9%. NCI Lifetime model risk: 8.4%. Prior Study Comparison: 01/08/2022 Bilateral Screening Mammogram, [facility]. 01/17/2023 Bilateral MG 3D screening mammo w/cad, [facility]. 01/23/2024 Bilateral MG 3D screening mammo w/cad, [facility]. Tissue Density: There are scattered areas of fibroglandular density. Findings: Analyzed By CAD. There is no suspicious group of microcalcifications or new suspicious mass in either breast. Overall Assessment: Negative, BI-RAD 1 Management: Screening Mammogram of both breasts in 1 year. Patient should continue monthly self-breast exams. A clinical breast exam by your physician is recommended on an annual basis. This exam should not preclude additional follow-up of suspicious palpable abnormalities. Note on Gracia scores and lifetime risk: 1. A Gracia score greater than 3% is considered moderate risk. If this is the case, consider specialist referral to assess eligibility for a risk reducing agent. 2. If overall lifetime risk for the development of breast cancer is 20% or higher, the patient may qualify for future screening with alternating mammogram and breast MRI. [facility], , 03/01/2025 4:15 PM. Electronically signed and approved by: Blake Garcia M.D. Radiologist
== END | disposition home or self-care (01) ==
LOC: RADMAMWWP 10:52
PROVIDERS: ATTEND Family Medicine
DX: Z12.31 Encounter for screening mammogram for malignant neoplasm of breast (principal); R92.323 Mammographic fibroglandular density, bilateral breasts; Z78.0 Asymptomatic menopausal state; Z80.3 Family history of malignant neoplasm of breast; Z92.0 Personal history of contraception
CPT/HCPCS: 77063; 77067